=== PATIENT | male | born 1960 | race Caucasian/White ===

== ENCOUNTER 2021-02-22 06:47 | Outpatient (REF) | payer OTHER, SELFPAY ==
[2021-02-22 08:02] LABS: Anion Gap 11 (12-20); Blood Urea Nitrogen 18 mg/dL (9-16); Calcium 8.9 mg/dL (8.4-10.2); Carbon Dioxide 27 mmol/L (22-29); Chloride 106 mmol/L (96-108); Cholesterol 154 mg/dL; Estimated Glomerular Filt Rate > 60; Glucose Random 97 mg/dL (60-115); HDL Cholesterol 57 mg/dL; LDL Cholesterol Calculated 86 mg/dl; Potassium 4.4 mmol/L (3.3-5.1); Sodium 140 mmol/L (135-145); Triglycerides 55 mg/dL
[2021-02-23 10:37] LABS: Percent Free Prostate Spec Ag 24 % (calc) (>25); Prostate Specific Ag Total 4.2 ng/mL (< OR = 4.0)
== END 2021-02-22 06:48 | disposition home or self-care (01) ==
LOC: HO.LAB 06:47
PROVIDERS: PCP Family Medicine; Visit Provider Family Medicine
DX: R97.20 Elevated prostate specific antigen [PSA] (principal)
CPT/HCPCS: 36415; 80048; 80061; 84153; 84154

== ENCOUNTER 2021-08-24 06:52 | Outpatient (REF) | payer OTHER, SELFPAY ==
[2021-08-24 07:27] LABS: Hematocrit 41.6 % (42-52); Hemoglobin 14.1 g/dl (14.0-18.0); Mean Corpuscular HGB Conc 33.9 g/dl (31.0-36.0); Mean Corpuscular Hemoglobin 31.3 pg (27.0-33.0); Mean Corpuscular Volume 92.2 fL (80-98); Mean Platelet Volume 10.8 fL (9.4-12.4); Platelet Count 209 X10*3/uL (160-400); Red Blood Count 4.51 X10*6/uL (4.60-5.80); Red Cell Distribution Width 12.3 % (11.0-16.0); White Blood Count 5.1 X10*3/uL (4.8-10.8)
[2021-08-24 07:55] LABS: Alanine Aminotransferase 16 U/L (0-40); Albumin Level 4.1 g/dL (3.5-5.0); Alkaline Phosphatase 77 U/L (39-117); Anion Gap 12 (12-20); Aspartate Amino Transferase 18 U/L (5-37); Bilirubin Total 2.3 mg/dL (0.0-1.0); Blood Urea Nitrogen 13 mg/dL (9-16); Calcium 8.8 mg/dL (8.4-10.2); Carbon Dioxide 27 mmol/L (22-29); Chloride 106 mmol/L (96-108); Cholesterol 137 mg/dL; Estimated Glomerular Filt Rate > 60; Glucose Random 100 mg/dL (60-115); HDL Cholesterol 49 mg/dL; LDL Cholesterol Calculated 79 mg/dl; Potassium 4.9 mmol/L (3.3-5.1); Sodium 140 mmol/L (135-145); Total Protein 6.2 g/dL (6.5-8.0); Triglycerides 45 mg/dL
[2021-08-24 08:16] LABS: Prostate Specific Antigen 5.18 ng/mL (<0.05-4.0); Vitamin D 25-OH Total 29.9 ng/mL (>30)
== END 2021-08-24 06:53 | disposition home or self-care (01) ==
LOC: HO.LAB 06:52
PROVIDERS: PCP Family Medicine; Visit Provider Family Medicine
DX: Z00.00 Encounter for general adult medical examination without abnormal findings (principal); Z12.5 Encounter for screening for malignant neoplasm of prostate
CPT/HCPCS: 36415; 80053; 80061; 82306; 84153; 85027

== ENCOUNTER 2021-10-10 06:21 | Emergency (ER) | payer OTHER, SELFPAY ==
[2021-10-10 06:52] VITALS: BP 138/71; PULSE 72; RESP 16; TEMP 36.9; O2SAT 97; BMI 23.7
--- NOTE | 2021-10-10 07:00 | ED.EYEPROB ---
HPI - Eye Problem General Chief complaint: Eye Problems Stated complaint: right eye pain Time Seen by Provider: 10/10/21 06:49 Source: patient Mode of arrival: ambulatory Limitations: no limitations History of Present Illness MD chief complaint: eye pain, eye redness and foreign body Onset (ago): day(s) (yesterday) Onset description: sudden Duration: constant and progressively worsening Location: right eye Eye Symptoms: burning, redness, pain, foreign body sensation and discharge Place: home Mechanism: direct trauma (after leaf blowing) Severity: moderate If Pain, Quality: burning Context: trauma Associated symptoms: none Treatments Prior to Arrival: none Related Data Previous Rx's Medication Instructions Recorded hydrocodone 5 mg-acetaminophen 325 1 tab PO Q6H PRN #12 tab 10/10/21 mg tablet Allergies Allergy/AdvReac Type Severity Reaction Status Date / Time No Known Allergies Allergy Mild NONE Unverified 08/05/20 15:51 Review of Systems Review of Systems: Constitutional : No Fever, No Chills ENT/Mouth : No sore throat, No Rhinorrhea Eyes: pos Eye Pain, No Swelling, pos Redness Cardiovascular : No Chest Pain, No SOB Respiratory : No Cough, No Sputum, No Wheezing Gastrointestinal : No Nausea, No Vomiting, No Diarrhea Skin : No Skin Lesions, No rash Neuro : No Weakness No Headache PMFSH Past Medical History Attestation statement: The following information was validated with the patient. Medical History No known health problems Social History Social History (Updated 10/10/21 @ 07:15 by Urvashi Calabrese DO) Patient Tobacco Use Status: Never used Tobacco Advance Directives: No Advance Directives Information Provided: Yes Physical Exam Vital Signs: Vital Signs: Last Vital Signs Temp 98.4 F 10/10/21 06:52 Pulse 72 10/10/21 06:52 Resp 16 10/10/21 06:52 BP 138/71 10/10/21 06:52 Pulse Ox 97 10/10/21 06:52 Body Mass Index 23.7 Appearance: Alert. Oriented X3. No acute distress. Eyes: Pupils equal, round and reactive to light. R eye slight injection clear tearing noted with tetracaine and fluorescein / carreno lamp noted small less than 0.5cm oval shaped abrasion inferior to the pupil at 6 o clock no other FB seen ENT: Pharynx normal. Neck: Normal inspection. Neck supple. CVS: Normal heart rate and rhythm. Pulses normal. Respiratory: No respiratory distress. Breath sounds normal. Abdomen: atraumatic Skin: Skin warm and dry. Normal skin color. Normal skin turgor. Extremities: No lower extremity edema. Neuro: Oriented X 3. No motor deficit. No sensory deficit. MDM - Eye Problem MDM Narrative Medical decision making narrative: 60 yo male otherwise healthy tetanus UTD here with R eye pain no change in vision after leaf blowing exam consistent with small corneal abrasion - will start on ointment and pain medicatios refer to eye doctor - no other injuries noted Discharge Plan Discharge Clinical Impression: Corneal abrasion Qualifiers: Encounter type: initial encounter Laterality: right Qualified Code(s): S05.01XA - Injury of conjunctiva and corneal abrasion without foreign body, right eye, initial encounter Patient Disposition: Home, Self-Care Instructions: Corneal Abrasion (ED) Additional Instructions: return to ED for any worsening symptoms or concerns apply small ribbon to R eye of the ointment three times a day for 5 days Prescriptions: New hydrocodone-acetaminophen 5-325 mg tablet 1 tab PO Q6H PRN (Reason: pain) Qty: 12 RF: 0 Referrals: Gautam Gaming [Physician] - 1 week Stand Alone Forms: Work/School Release
[2021-10-10] MEDS: Tetracaine HCl/PF 0.5% Oph Sol 4 ML DROPS 3 DROP EYE-RIGHT (07:03)
[2021-10-10] MEDS: Fluorescein Sodium STRIP 1 STRIP EYE-RIGHT (07:03)
[2021-10-10] MEDS: Erythromycin Base 0.5% Oph Oin 1 GM TUBE 1 CM EYE-RIGHT (07:04)
== END 2021-10-10 07:23 | disposition home or self-care (01) ==
PROVIDERS: Emergency Provider Emergency Medicine
DX: S05.01XA Injury of conjunctiva and corneal abrasion without foreign body, right eye, initial encounter (principal); W45.8XXA Other foreign body or object entering through skin, initial encounter; H57.11 Ocular pain, right eye; Y93.H1 Activity, digging, shoveling and raking; Y92.017 Garden or yard in single-family (private) house as the place of occurrence of the external cause; Y99.9 Unspecified external cause status
CPT/HCPCS: 99283

== ENCOUNTER 2022-02-13 06:58 | Outpatient (REF) | payer OTHER, SELFPAY ==
[2022-02-13 08:20] LABS: PSA,Total (Free>4and<10) 4.77 ng/mL (0.00-4.00)
[2022-02-14 12:26] LABS: Free Prostate Spec Ag 1.2 ng/mL; Percent Free Prostate Spec Ag 24 % (calc) (>25)
== END 2022-02-13 06:59 | disposition home or self-care (01) ==
LOC: HO.LAB 06:58
PROVIDERS: PCP Family Medicine; Visit Provider Family Medicine
DX: R97.20 Elevated prostate specific antigen [PSA] (principal); Z12.5 Encounter for screening for malignant neoplasm of prostate
CPT/HCPCS: 36415; 84153; 84154

== ENCOUNTER 2022-05-01 10:50 | Day surgery (SDC) | payer OTHER, SELFPAY ==
[2022-04-25 15:03] VITALS: BMI 23.9
--- NOTE | 2022-04-28 10:04 | HO.ANESPROP2 ---
Documented by User: Aaliyah Terrell NP 04/28/22 10:04 HPI - Anesthesia Eval Consult details Narrative: 61yo M for Upper Endoscopy and Colonoscopy [facility] Past Medical History Medical History (Updated 04/25/22 @ 14:54 by Danita Carrion, MOIZ) Barretts esophagus GERD (gastroesophageal reflux disease) Hiatal hernia History of tinnitus Hx SBO Skin cancer Surgical History Surgical History (Updated 04/25/22 @ 14:54 by Danita Carrion, RN) History of back surgery History of esophagogastroduodenoscopy (EGD) History of exploratory laparotomy History of left inguinal hernia repair Hx of colonoscopy Social History Social History (Updated 10/10/21 @ 07:15 by Urvashi Calabrese DO) Patient Tobacco Use Status: Never used Tobacco Are you DNR?: No Advance Directives: No Advance Directives Information Provided: Yes Meds Allergies Allergy/AdvReac Type Severity Reaction Status Date / Time No Known Allergies Allergy Mild NONE Unverified 04/25/22 14:54 Home Medications Medication Instructions Recorded Confirmed Last Taken Type ymxokfgabui-ggpceohpw-vtp C-Mn 500 cap PO 04/25/22 Unknown History mg-400 mg capsule lysine 500 mg tablet 500 mg PO DAILY 04/25/22 04/25/22 Unknown History pantoprazole 40 mg tablet,delayed 1 tab PO DAILY 04/25/22 04/25/22 05/01/22 History release Exam Exam Date and Time: April 28, 2022 1004 Height,Weight and Vital Signs: Height 5 ft 11.5 in Weight 78.925 kg Assessment and Plan Assessment Anesthesia Assessment: Chart Reviewed Documented by User: Bernard Mccarthy MD 05/01/22 11:27 [facility] Past Medical History Medical History (Updated 04/25/22 @ 14:54 by Danita Carrion RN) Barretts esophagus GERD (gastroesophageal reflux disease) Hiatal hernia History of tinnitus Hx SBO Skin cancer Family History Family history of problems with anesthesia: No Surgical History Surgical History (Updated 04/25/22 @ 14:54 by Danita Carrion RN) History of back surgery History of esophagogastroduodenoscopy (EGD) History of exploratory laparotomy History of left inguinal hernia repair Hx of colonoscopy History of Problems with Anesthesia: No Social History Social History (Updated 10/10/21 @ 07:15 by Urvashi Calabrese DO) Patient Tobacco Use Status: Never used Tobacco Are you DNR?: No Advance Directives: No Advance Directives Information Provided: Yes Meds Allergies Allergy/AdvReac Type Severity Reaction Status Date / Time No Known Allergies Allergy Mild NONE Unverified 04/25/22 14:54 Home Medications Medication Instructions Recorded Confirmed Last Taken Type hyjvvzxkeoz-mdnbktlrg-wzn C-Mn 500 cap PO 04/25/22 Unknown History mg-400 mg capsule lysine 500 mg tablet 500 mg PO DAILY 04/25/22 04/25/22 Unknown History pantoprazole 40 mg tablet,delayed 1 tab PO DAILY 04/25/22 04/25/22 05/01/22 History release Exam Airway Mallampati Class: II TM Dist: >3cm Neck ROM: Full Loose/Missing/Broken Teeth: No Heart: rrr+s1s2 Lungs: cta b/l Assessment and Plan Assessment Anesthesia Assessment: Anesthesia Plan Discussed Final Anesthetic Review Family History of Problems with Anesthesia: No History of Problems with Anesthesia: No NPO: Yes ASA Class: II Final Preanesthetic Review: No Changes in Pt Med Stat, Meds/Allgs Chart Reviewed, Consent Obtained/Reviewed and Anes Risks/Benef Reviewed Patient Risk: Intermediate Procedure Risk: Low Assessment/Block/Sedation in SS: Assess/Block/Sedation-SS Anesthetic Plan Anesthetic Plan: MAC: and Agree w/ Assess. and Plan Disposition: Standard PACU
[2022-05-01 11:04] VITALS: BP 113/64; PULSE 66; RESP 16; TEMP 36.6; O2SAT 98
[2022-05-01] MEDS: Lactated Ringers 1,000 ML 100 ML IVCONT (11:14)
[2022-05-01 13:26] VITALS: BP 114/63; PULSE 83; RESP 16; TEMP 36.8; O2SAT 98
--- NOTE | 2022-05-01 13:30 | P.BOP_ITS ---
Brief Operative Note Date of Service: 05/01/22 Pre-op diagnosis: Lundy's, Screening Post-op diagnosis: other (Hiatal hernia, Colon polyps) Procedure: EGD with biopsies, Colonoscopy to the cecum and TI with hot snare polypectomy of AC polyp and bx/removal of polyp at 30cm Surgeon: Dexter Miner Anesthesia: MAC Was an Property Management Assistant used for this Procedure?: No Estimated blood loss (mL): 2.0 Pathology: other (A. EG Junction at 40cm B. Ascending colon polyp C. Polyp at 30cm) Condition: stable Disposition: PACU
[2022-05-01 13:39] VITALS: BP 117/64; PULSE 75; RESP 16; TEMP 36.8; O2SAT 98
--- NOTE | 2022-05-02 00:09 | OP_ITS ---
SURGEON: Dexter Miner MD INDICATIONS: The patient presents for evaluation of gastroesophageal reflux, Lundy's esophagus, and colorectal cancer screening. Full consent has been obtained from him for this, including risks of bleeding and perforation. PREOPERATIVE DIAGNOSIS: POSTOPERATIVE DIAGNOSIS: PROCEDURE PERFORMED: ESTIMATED BLOOD LOSS: COMPLICATIONS: ANESTHESIA: Monitored anesthesia care. ASSISTANTS: SPECIMENS: PROCEDURES: Esophagogastroduodenoscopy with biopsies, and colonoscopy to the cecum and terminal ileum with hot snare polypectomy and biopsy and removal of polyp. PREOPERATIVE DIAGNOSES: Gastroesophageal reflux, Lundy's esophagus, colorectal cancer screening. POSTOPERATIVE DIAGNOSES: Gastroesophageal reflux, Lundy's esophagus, colorectal cancer screening, small hiatal hernia, colon polyps, diverticulosis, and internal hemorrhoids. DESCRIPTION OF PROCEDURE: The patient was placed in the left lateral decubitus position. The Olympus video gastroscope was passed into the posterior oropharynx and upper esophagus under direct vision. The scope was passed slowly into the distal esophagus. The gastroesophageal junction appeared at 40 cm. There was some slight irregularity consistent with reflux and possibly small areas of Lundy's mucosa. There was no esophagitis. The scope entered the stomach. There was a small hiatal hernia. The scope was advanced to pylorus and the duodenum was cannulated to the descending portion. The duodenum including the bulb appeared normal without mass or ulceration. The scope was withdrawn back into the stomach. The gastric antrum and body appeared normal with good peristalsis. The scope was retroflexed visualizing the proximal stomach carefully, which appeared normal, without any sign of mass or ulceration. The scope was straightened and withdrawn back into the esophagus. Multiple biopsies were obtained at the EG junction at 40 cm. Proximal to this, the esophageal mucosa appeared normal. The scope was withdrawn from the patient. He was turned around for colonoscopy. The digital rectal exam revealed no abnormalities. The Olympus video pediatric colonoscope was entered into the rectum and advanced easily into the cecum. Once in the cecum, I did identify normal-appearing cecal pouch with appendiceal orifice and a normal-appearing ileocecal valve. The terminal ileum was cannulated and appeared normal. Scope was withdrawn back into the colon. The entire cecum was well visualized and appeared normal. Scope was slowly withdrawn assessing all mucosal surfaces carefully. Preparation was excellent. In the ascending colon, there was an approximately 6 to 8 mm polyp, which was removed by hot snare polypectomy and recovered by suction. The polypectomy site appeared clean, without any sign of residual polyp nor bleeding. At 30 cm, there was an approximately 3 mm polyp, which was biopsied and completely removed with cold biopsy forceps. I did not visualize any other polyps, colitis, or angiodysplasia. There was a mild amount of sigmoid diverticulosis. In the rectum, the scope was retroflexed visualizing small internal hemorrhoids, but no other pathology. The rectal mucosa appeared normal. Scope was straightened and withdrawn from the patient. He tolerated both procedures well and was returned to the recovery area in stable condition. IMPRESSION: 1. Colon polyps, status post hot snare polypectomy and biopsy removal. 2. Diverticulosis. 3. Internal hemorrhoids. 4. Hiatal hernia with history of Lundy's esophagus. PLAN: The results of biopsies will be checked. If the polyp is a tubular adenoma, I would recommend a repeat upper endoscopy and colonoscopy in 5 years for further surveillance. He was advised to continue his daily pantoprazole. He was advised not to use any aspirin and NSAIDs for 1 week. He will otherwise see me on a p.r.n. basis. MD JOY Nielsen/MELISA / [id number] MTDCharisse
== END 2022-05-01 14:34 | disposition home or self-care (01) ==
PROVIDERS: PCP Family Medicine; Visit Provider Internal Medicine
PROC: (CPT 45385; principal; 2022-05-01 11:50)
DX: Z12.11 Encounter for screening for malignant neoplasm of colon (principal); D12.2 Benign neoplasm of ascending colon; K63.5 Polyp of colon; K57.30 Diverticulosis of large intestine without perforation or abscess without bleeding; K64.8 Other hemorrhoids; K22.70 Barrett's esophagus without dysplasia; K21.9 Gastro-esophageal reflux disease without esophagitis; K44.9 Diaphragmatic hernia without obstruction or gangrene; Z90.49 Acquired absence of other specified parts of digestive tract; Z85.828 Personal history of other malignant neoplasm of skin; Z79.899 Other long term (current) drug therapy
CPT/HCPCS: 45385; 45380; 43239; 88305; J3010

== ENCOUNTER 2022-09-04 06:53 | Outpatient (REF) | payer OTHER, SELFPAY ==
[2022-09-04 07:31] LABS: Hematocrit 41.2 % (42.0-52.0); Hemoglobin 13.6 g/dl (14.0-18.0); Mean Corpuscular Hemoglobin 30.4 pg (27.0-33.0); Mean Corpuscular Volume 92.2 fL (80.0-98.0); Mean Platelet Volume 10.3 fL (9.4-12.4); Platelet Count 204 X10*3/uL (160-400); Red Blood Count 4.47 X10*6/uL (4.60-5.80); Red Cell Distribution Width 12.4 % (11.0-16.0); White Blood Count 6.2 X10*3/uL (4.8-10.8)
[2022-09-04 07:58] LABS: Alanine Aminotransferase 17 U/L (0-40); Albumin Level 3.9 g/dL (3.5-5.0); Alkaline Phosphatase 74 U/L (39-117); Anion Gap 14 (12-20); Aspartate Amino Transferase 17 U/L (5-37); Bilirubin Total 1.7 mg/dL (0.0-1.0); Blood Urea Nitrogen 18 mg/dL (9-16); Calcium 8.8 mg/dL (8.4-10.2); Carbon Dioxide 25 mmol/L (22-29); Chloride 108 mmol/L (96-108); Cholesterol 128 mg/dL; Estimated Glomerular Filt Rate > 60; Glucose Random 112 mg/dL (60-115); HDL Cholesterol 53 mg/dL; LDL Cholesterol Calculated 69 mg/dl; Potassium 4.7 mmol/L (3.3-5.1); Sodium 142 mmol/L (135-145); Total Protein 6.1 g/dL (6.5-8.0); Triglycerides 32 mg/dL
[2022-09-04 08:34] LABS: Prostate Specific Antigen Scr 4.72 ng/mL (<0.05-4.0)
== END 2022-09-04 06:54 | disposition home or self-care (01) ==
LOC: HO.LAB 06:53
PROVIDERS: PCP Family Medicine; Visit Provider Family Medicine
DX: Z00.00 Encounter for general adult medical examination without abnormal findings (principal); Z12.5 Encounter for screening for malignant neoplasm of prostate
CPT/HCPCS: 36415; 80053; 80061; 84153; 85027

== ENCOUNTER 2023-02-23 06:56 | Outpatient (REF) | payer OTHER, SELFPAY ==
[2023-02-23 07:07] LABS: MANUAL DIFF FLAG NO
[2023-02-23 07:23] LABS: Basophils Absolute Auto 0.1 X10*3/uL (0.0-0.2); Basophils Percent Auto 0.9 % (0-2); Eosinophils Percent Auto 0.7 % (0-4); Hematocrit 40.5 % (42.0-52.0); Hemoglobin 13.2 g/dl (14.0-18.0); Imm Gran Abs Auto 0.01 X10*3/uL (0.00-0.03); Imm Gran Pct Auto 0.2 % (0.0-0.4); Lymphocytes Absolute Auto 1.2 X10*3/uL (1.2-4.9); Lymphocytes Percent Auto 21.5 % (20-40); Mean Corpuscular HGB Conc 32.6 g/dl (31.0-36.0); Mean Corpuscular Hemoglobin 30.1 pg (27.0-33.0); Mean Corpuscular Volume 92.5 fL (80.0-98.0); Mean Platelet Volume 10.2 fL (9.4-12.4); Monocytes Absolute Auto 0.7 X10*3/uL (0.1-1.2); Monocytes Percent Auto 12.7 % (2-11); Neutrophils Absolute Auto 3.6 x10*3/uL (2.0-8.3); Platelet Count 219 X10*3/uL (160-400); Red Blood Count 4.38 X10*6/uL (4.60-5.80); Red Cell Distribution Width 12.3 % (11.0-16.0); White Blood Count 5.6 X10*3/uL (4.8-10.8)
== END 2023-02-23 06:57 | disposition home or self-care (01) ==
LOC: HO.LAB 06:56
PROVIDERS: PCP Family Medicine; Visit Provider Family Medicine
DX: D64.9 Anemia, unspecified (principal)
CPT/HCPCS: 36415; 85025

== ENCOUNTER 2023-09-11 07:06 | Outpatient (REF) | payer OTHER, SELFPAY ==
[2023-09-11 07:19] LABS: MANUAL DIFF FLAG NO
[2023-09-11 08:01] LABS: Basophils Percent Auto 0.6 % (0-2); Eosinophils Percent Auto 0.8 % (0-4); Hematocrit 40.7 % (42.0-52.0); Hemoglobin 13.3 g/dl (14.0-18.0); Imm Gran Abs Auto 0.01 X10*3/uL (0.00-0.03); Imm Gran Pct Auto 0.2 % (0.0-0.4); Lymphocytes Absolute Auto 1.1 X10*3/uL (1.2-4.9); Lymphocytes Percent Auto 21.4 % (20-40); Mean Corpuscular HGB Conc 32.7 g/dl (31.0-36.0); Mean Corpuscular Hemoglobin 31.5 pg (27.0-33.0); Mean Corpuscular Volume 96.4 fL (80.0-98.0); Mean Platelet Volume 10.2 fL (9.4-12.4); Monocytes Absolute Auto 0.7 X10*3/uL (0.1-1.2); Monocytes Percent Auto 13.7 % (2-11); Neutrophils Absolute Auto 3.2 x10*3/uL (2.0-8.3); Neutrophils Percent Auto 63.3 % (45-73); Platelet Count 252 X10*3/uL (160-400); Red Blood Count 4.22 X10*6/uL (4.60-5.80); Red Cell Distribution Width 14.1 % (11.0-16.0); White Blood Count 5.1 X10*3/uL (4.8-10.8)
[2023-09-11 08:15] LABS: Alanine Aminotransferase 32 U/L (0-40); Albumin Level 3.9 g/dL (3.5-5.0); Alkaline Phosphatase 90 U/L (39-117); Anion Gap 12 (12-20); Aspartate Amino Transferase 26 U/L (5-37); Bilirubin Total 0.9 mg/dL (0.0-1.0); Blood Urea Nitrogen 17 mg/dL (9-16); Calcium 8.8 mg/dL (8.4-10.2); Carbon Dioxide 24 mmol/L (22-29); Chloride 110 mmol/L (96-108); Estimated Glomerular Filt Rate > 60; Glucose Random 100 mg/dL (60-115); Potassium 4.2 mmol/L (3.3-5.1); Sodium 142 mmol/L (135-145); Total Protein 6.4 g/dL (6.5-8.0)
[2023-09-11 08:33] LABS: Prostate Specific Antigen 5.73 ng/mL (<0.05-4.0)
== END 2023-09-11 07:07 | disposition home or self-care (01) ==
LOC: HO.LAB 07:06
PROVIDERS: PCP Family Medicine; Visit Provider Family Medicine
DX: Z12.5 Encounter for screening for malignant neoplasm of prostate (principal); R97.20 Elevated prostate specific antigen [PSA]; K21.9 Gastro-esophageal reflux disease without esophagitis; K22.70 Barrett's esophagus without dysplasia
CPT/HCPCS: 36415; 80053; 84153; 85025

== ENCOUNTER 2023-12-27 06:53 | Outpatient (REF) | payer OTHER, SELFPAY ==
[2023-12-27 08:14] LABS: Alanine Aminotransferase 27 U/L (0-40); Albumin Level 3.8 g/dL (3.5-5.0); Alkaline Phosphatase 90 U/L (39-117); Aspartate Amino Transferase 20 U/L (5-37); Bilirubin Direct 0.4 mg/dL (0.0-0.5); Bilirubin Total 1.2 mg/dL (0.0-1.0); Total Protein 6.2 g/dL (6.5-8.0)
== END 2023-12-27 06:54 | disposition home or self-care (01) ==
LOC: HO.LAB 06:53
PROVIDERS: PCP Family Medicine; Visit Provider Dermatology
DX: B35.1 Tinea unguium (principal)
CPT/HCPCS: 36415; 80076

== ENCOUNTER 2024-02-08 13:44 | Outpatient (REF) | payer OTHER, SELFPAY ==
[2024-02-08 14:59] LABS: Alanine Aminotransferase 31 U/L (0-40); Albumin Level 3.9 g/dL (3.5-5.0); Alkaline Phosphatase 101 U/L (39-117); Aspartate Amino Transferase 22 U/L (5-37); Bilirubin Direct 0.3 mg/dL (0.0-0.5); Bilirubin Total 0.8 mg/dL (0.0-1.0); Total Protein 6.4 g/dL (6.5-8.0)
== END 2024-02-08 13:45 | disposition home or self-care (01) ==
LOC: HO.LAB 13:44
PROVIDERS: PCP Family Medicine; Visit Provider Dermatology
DX: B35.1 Tinea unguium (principal)
CPT/HCPCS: 36415; 80076

== ENCOUNTER 2024-03-12 06:53 | Outpatient (REF) | payer OTHER, SELFPAY ==
[2024-03-12 07:10] LABS: MANUAL DIFF FLAG NO
[2024-03-12 08:29] LABS: Basophils Percent Auto 0.9 % (0-2); Eosinophils Percent Auto 0.7 % (0-4); Hematocrit 42.1 % (42.0-52.0); Hemoglobin 14.1 g/dl (14.0-18.0); Imm Gran Abs Auto 0.01 X10*3/uL (0.00-0.03); Imm Gran Pct Auto 0.2 % (0.0-0.4); Lymphocytes Absolute Auto 1.1 X10*3/uL (1.2-4.9); Lymphocytes Percent Auto 25.6 % (20-40); Mean Corpuscular HGB Conc 33.5 g/dl (31.0-36.0); Mean Corpuscular Hemoglobin 31.6 pg (27.0-33.0); Mean Corpuscular Volume 94.4 fL (80.0-98.0); Mean Platelet Volume 10.2 fL (9.4-12.4); Monocytes Absolute Auto 0.7 X10*3/uL (0.1-1.2); Neutrophils Absolute Auto 2.5 x10*3/uL (2.0-8.3); Neutrophils Percent Auto 56.6 % (45-73); Platelet Count 249 X10*3/uL (160-400); Red Blood Count 4.46 X10*6/uL (4.60-5.80); Red Cell Distribution Width 12.6 % (11.0-16.0); White Blood Count 4.4 X10*3/uL (4.8-10.8)
[2024-03-12 08:52] LABS: Alanine Aminotransferase 31 U/L (0-40); Alkaline Phosphatase 96 U/L (39-117); Anion Gap 9 (12-20); Aspartate Amino Transferase 21 U/L (5-37); Bilirubin Total 1.4 mg/dL (0.0-1.0); Blood Urea Nitrogen 15 mg/dL (9-16); Calcium 8.9 mg/dL (8.4-10.2); Carbon Dioxide 28 mmol/L (22-29); Chloride 106 mmol/L (96-108); Cholesterol 114 mg/dL (<200); Estimated Glomerular Filt Rate > 60; Glucose Random 98 mg/dL (60-115); HDL Cholesterol 31 mg/dL (>40); LDL Cholesterol Calculated 76 mg/dL (<100); Potassium 4.4 mmol/L (3.3-5.1); Sodium 139 mmol/L (135-145); Total Protein 6.6 g/dL (6.5-8.0); Triglycerides 37 mg/dL (<150)
[2024-03-12 09:18] LABS: Prostate Specific Antigen 5.35 ng/mL (<0.05-4.0)
[2024-03-14 13:19] LABS: Free Prostate Spec Ag 1.2 ng/mL; Percent Free Prostate Spec Ag 24 % (calc) (>25); Prostate Specific Ag Total 5.1 ng/mL (< OR = 4.0)
== END 2024-03-12 06:54 | disposition home or self-care (01) ==
LOC: HO.LAB 06:53
PROVIDERS: PCP Family Medicine; Visit Provider Family Medicine
DX: Z00.00 Encounter for general adult medical examination without abnormal findings (principal); R97.20 Elevated prostate specific antigen [PSA]; K21.9 Gastro-esophageal reflux disease without esophagitis; K22.70 Barrett's esophagus without dysplasia; Z12.5 Encounter for screening for malignant neoplasm of prostate
CPT/HCPCS: 36415; 80053; 80061; 84153; 84154; 85025

== ENCOUNTER 2024-06-23 07:00 | Outpatient (REF) | payer OTHER, SELFPAY ==
[2024-06-23 08:08] LABS: Alanine Aminotransferase 28 U/L (0-40); Alkaline Phosphatase 91 U/L (39-117); Aspartate Amino Transferase 21 U/L (5-37); Bilirubin Direct 0.4 mg/dL (0.0-0.5); Bilirubin Total 1.2 mg/dL (0.0-1.0); Total Protein 6.4 g/dL (6.5-8.0)
== END 2024-06-23 07:01 | disposition home or self-care (01) ==
LOC: HO.LAB 07:00
PROVIDERS: PCP Family Medicine; Visit Provider Physician Assistant Surgical
DX: B35.1 Tinea unguium (principal)
CPT/HCPCS: 36415; 80076

== ENCOUNTER 2024-10-28 14:44 | Outpatient (REF) | payer OTHER, SELFPAY ==
[2024-10-29 15:19] LABS: Free Prostate Spec Ag 1.7 ng/mL; Percent Free Prostate Spec Ag 30 % (calc) (>25); Prostate Specific Ag Total 5.7 ng/mL (< OR = 4.0)
--- OUTSIDE RECORDS SUMMARY | 2024-10-29 22:11 | XMS_ITS ---
Author Organization [facility] Address [address] [place] [address] Care Team Providers Care Hospitality Host Name Role Phone JACE CORMIER MD Primary Care Provider Unavailab Jace Gonzales Unavailable [phone] ALLERGIES No Known Allergies REASON FOR VISIT Patient presents today for diarrhea, reflux MEDICATIONS Medication SIG (Take, Route, Frequency, Duration) Notes Start Date End Date Status Pantoprazole Sodium 40 MG TAKE 1 TAB BY MOUTH TWICE DAILY X 30 DAYS for 30 Active Tamsulosin HCl 0.4 MG Oral for 90 Active Lysine 500 MG as directed Orally a s directed Active Glucosamine Chondr 1500 Complx Orally Active PROBLEMS Problem Type ICD Code Onset Dates Problem Status W/U Status Risk SNOMED Code Notes Problem Diarrhea, unspecified type (R19.7) Active confirmed 88770328 VITAL SIGNS BMI 22.66 kg/m2 06/27/2023 Blood pressure systolic 000 mm Hg 06/27/20 23 Blood pressure diastolic 00 mm Hg 023 Height 71.50 in 06/27/2023 Temperature 98.6 degrees Fahrenheit 06/27/20 23 Weight 164.8 lbs 06/27/2023 Encounters Encounter Location Date Provider Diagnosis [facility] [address] [place] [phone] 06/27/2023 Jace Miner Gastroesophageal ref lux disease without esophagitis K21.9 and Diarrhea, unspecified type R19.7 ASSESSMENTS Encounter Date Diagnosis Assessment Notes Treatment Notes Treatment Clinical Notes 06/27/2023 Gastroesophageal reflux disease without esophagitis (ICD-10 - K21.9) Stay on the one Pantoprazole every day and use TUMS as needed 06/27/2023 Diarrhea, unspecifie d type (ICD-10 - R19.7) Let me know if you do the lab and stool specimens, and call me if things worsen PLAN OF TREATMENT Treatment Notes Assessment Notes Gastroesophageal reflux dise ase without esophagitis Stay on the one Pantoprazole every day and use TUMS as needed Diarrhea, unspecified type Let me know i f you do the lab and stool specimens, and call me if things worsen Pending Test Test Name Order Date CELIAC PANEL #10 06/27/2023 STOOL WBC 06/27/2023 C DIFFICILE RFLX PCR 06/27/2023 GI PANEL 06/27/2023 Next Appt Details Follow Up: prn, Reason: Progress Notes * Examination Category Sub-Category Detail Notes General Examination GENERAL APPEARANCE: pleasant , well nourished, well developed, in no acute distress EYES: sclera non-icteric NECK/THYROID: no cervical lymphade nopathy, neck supple HEART: S1, S2 normal LUNGS: clear to auscultatio n bilaterally ABDOMEN: normal bowel sounds, no guarding or rigidity, no hepatosplenomegaly, no masses palpable, soft, nontender, nondistended. NEUROLOGIC: alert and oriented SKIN: nonjaundiced, no spi amos angiomata. EXTREMITIES: no edema ORAL CAVITY: mucosa moist
--- OUTSIDE RECORDS SUMMARY | 2024-10-29 22:11 | XMS_ITS ---
Author Organization [facility] Address [address] [place] [phone] Care Team Providers Care Threshing Department Supervisor Name Role Phone JACE CORMIER MD Primary Care Provider Unavailab Jace Gonzales Unavailable [phone] REASON FOR VISIT acid reflux Encounters Encounter Location Date Provider Diagnosis [facility] [address] [place] [address] 09/19/2023 Jace Miner PLAN OF TREATMENT No Information
--- OUTSIDE RECORDS SUMMARY | 2024-10-29 22:11 | XMS_ITS ---
Author Organization [facility] Address [address] [place] [address] Care Team Providers Care Intelligence Consultant Name Role Phone JACE CORMIER MD Primary Care Provider Unavailab Jace Gonzales Unavailable [phone] REASON FOR VISIT soon appt Encounters Encounter Location Date Provider Diagnosis [facility] [address] [place] [address] 06/25/2023 Jace Miner PLAN OF TREATMENT No Information
--- OUTSIDE RECORDS SUMMARY | 2024-10-29 22:11 | XMS_ITS | Patient Health Record ---
Author Organization [facility] Address [address] [place] [address] Care Team Providers Care Metal Bonding Helper Name Role Phone JACE CORMIER MD Primary Care Provider UnavailJace Baldwin Unavailable [phone] ALLERGIES No Known Allergies REASON FOR REFERRAL No Information MEDICATIONS Medication SIG (Take, Route, Frequency, Duration) Notes Start Date End Date Status Pantoprazole Sodium 40 MG TAKE 1 TAB BY MOUTH TWICE DAILY X 30 DAYS for 30 Active Tamsulosin HCl 0.4 MG Oral for 90 Active Lysine 500 MG as directed Orally a s directed Active Glucosamine Chondr 1500 Complx Orally Active IMMUNIZATIONS Vaccine Route Administration Date Status Comme nts Influenza Unknown 09/23/2018 Administered Influenza Unknown 10/04/2021 Administered Influenza Unknown 10/10/2022 Administered SOCIAL HISTORY Sex Assigned At : Social History Observation Description Sex Assigned At Unknown PROBLEMS Problem Type ICD Code Onset Dates Problem Status W/U Status Risk SNOMED Code Notes Problem Gastro-esophageal reflux disease without esophagitis (K21.9) Active confirmed [id number] Problem Encounter for screening for malignant neoplasm of colon (Z12.11) Active confirmed Screening for malignant neoplasm of colon (127392129) Problem Gastroesophageal reflux disease without esophagitis (K21.9) Active confirmed 208883533 Problem Lundy esophagus (K22.70) Active confirmed Lundy esophagus (357187429) Problem Gastroesophageal reflux (K21.9) Active confirmed Esophageal reflux finding (920997696) Problem Diarrhea, unspecified type (R19.7) Active confirmed 61236583 Problem Diverticulosis of colon (K57.30) Active confirmed Diverticulosi s of colon (617942501) Problem Lundy''s esophagus without dysplasia (K22.70) Active confirmed 471160120 PLAN OF TREATMENT Pending Test Test Name Order Date CELIAC PANEL #10 06/27/2023 STOOL WBC 06/27/2023 C DIFFICILE RFLX PCR 06/27/2023 GI PANEL 06/27/2023 Future Test Test Name Order Date UPPER GI ENDOSCOPY 03/30/2015 UPPER GI ENDOSCOPY 11/20/2018 UPPER GI ENDOSCOPY 04/05/2022 COLONOSCOPY 04/05/2022 Insurance Providers Payer Name Payer Address Payer Phone Subscriber Number Group Number Insured Name Patient Relationship to Insured Coverage Start Date Coverage End Date [employer] [place] [address] [address] [place] [address] [id number] BRENNA KYLIE Self - patient is the insured MEDICAL (GENERAL) HISTORY Medical History History ICD Code GERD-his upper endoscopy in 2007 revealed a small hiatal hernia and a tiny area of Lundy's mucosa--his followup upper endoscopy in 2010 was negative for any Lundy's esophagus nor significant esophagitis; 05/2015 EGD with tiny area of Lundy's--no dysplasia; upper endoscopy in December of 2018 revealed his known hiatal hernia but biopsies were negative for Lundy's mucosa--there was no esophagitis Denies [place],DM,CVA,Lung disease,renal dise ase Screening colonoscopy in 1 was negative other than a non-adenomatous polyp and some mild more diverticulosis Tinnitus EGD 04/2022-small HH, no Lundy's, no es ophagitis Colonoscopy 04/2022-1 small serrated poly and a hyperplastic polyp Surgical History Surgery Date(Month/Year) Back surgery Small bowel resection for Meckel's diver ticulum and obstruction Second laparotomy for adhesi ons several years after the small bowel resections Skin cancer removals--squamous and basal cell Left inguinal hernia repair Basal cell taken off of left arm
== END 2024-10-28 14:45 | disposition home or self-care (01) ==
LOC: HO.LAB 14:44
PROVIDERS: PCP Family Medicine; Visit Provider Urology
DX: R97.20 Elevated prostate specific antigen [PSA] (principal)
CPT/HCPCS: 36415; 84154

== ENCOUNTER 2024-11-27 08:35 | Outpatient (REF) | payer OTHER, SELFPAY ==
--- NOTE | ~2024-11-27 | MR_ITS ---
EXAMINATION: MR PELVIS WITHOUT THEN WITH IV CONTRAST HISTORY: ELEVATED PSA F/U EXAM TECHNIQUE: 1.5T body coil survey of the pelvis was performed. Phase array coil imaging of the prostate was performed in multiplanar high resolution axial, coronal, sagittal fast spin echo T2 and axial T1 weighted imaging sequences. Axial diffusion imaging at intermediate and high field performed with ADC mapping. Next, 7.5 mL Gadavist was given by intravenous infusion, and dynamic axial imaging performed. COMPARISON: There are no prior studies for comparison. FINDINGS: Prostate size: 7.3 x 5.9 x 4.9 cm. Calculated prostate volume is 109.7 mL. Hemorrhage: None. Transitional Zone: There is marked heterogeneous nodular hypertrophy of the transitional zone. Peripheral Zone: The peripheral zone is thinned by the enlarged transitional zone. There are linear and wedge-shaped T2 hypointense foci in the peripheral zone which can be seen in the setting of prostatitis of scarring. There are no foci of restricted diffusion. No discrete focus of abnormal signal intensity is identified. Seminal Vesicles/Ejaculatory Ducts: Symmetric and normal in signal and caliber. Pelvic Lymph Nodes: No obturator or internal iliac lymph nodes meeting size criteria for adenopathy. Marrow Signal: Normal marrow signal and enhancement without focal lesion identified. MR/MR pelvis wo/w con IMPRESSION: No discrete focus of abnormal signal intensity is identified to suggest clinically significant prostate carcinoma. PI-RADS 2: Low (clinically significant cancer is unlikely to be present) [employer]. MR Prostate Imaging Reporting and Data System version 2.1. [email or web address] Electronically signed by: Dexter Mills MD 12/01/2024 08:17 AM HÉCTOR
--- OUTSIDE RECORDS SUMMARY | 2024-11-27 08:49 | XMS_ITS ---
Author Organization [facility] Address [address] [place] [phone] Care Team Providers Care Automatic Casting Machine Operator Name Role Phone JACE CORMIER MD Primary Care Provider Unavailab Jace Gonzales Unavailable [phone] REASON FOR VISIT acid reflux Encounters Encounter Location Date Provider Diagnosis [facility] [address] [place] [address] 09/19/2023 Jace Miner PLAN OF TREATMENT No Information
--- OUTSIDE RECORDS SUMMARY | 2024-11-27 08:50 | XMS_ITS ---
Author Organization [facility] Address [address] [place] [address] Care Team Providers Care Motorman/Woman Name Role Phone JACE CORMIER MD Primary Care Provider Unavailab Jace Gonzales Unavailable [phone] REASON FOR VISIT soon appt Encounters Encounter Location Date Provider Diagnosis [facility] [address] [place] [address] 06/25/2023 Jace Miner PLAN OF TREATMENT No Information
--- OUTSIDE RECORDS SUMMARY | 2024-11-27 08:50 | XMS_ITS ---
Author Organization [facility] Address [address] [place] [address] Care Team Providers Care Interventional Sale Consultant Name Role Phone JACE CORMIER MD Primary Care Provider Unavailab Jace Gonzales Unavailable [phone] ALLERGIES No Known Allergies REASON FOR VISIT [...] Problem Diarrhea, unspecified type (R19.7) Active confirmed 28891281 VITAL SIGNS BMI 22.66 kg/m2 06/27/2023 Blood pressure systolic 000 mm Hg 06/27/20 23 Blood pressure diastolic 00 mm Hg 023 Height 71.50 in 06/27/2023 Temperature 98.6 degrees Fahrenheit 06/27/20 23 Weight 164.8 lbs 06/27/2023 Encounters Encounter Location Date Provider Diagnosis [facility] [address] [place] [phone] 06/27/2023 Jace Miner Gastroesophageal ref lux disease [...]
--- OUTSIDE RECORDS SUMMARY | 2024-11-27 08:50 | XMS_ITS | Patient Health Record ---
Author Organization [facility] Address [address] [place] [address] Care Team Providers Care Tray Room Worker Name Role Phone JACE CORMIER MD Primary Care Provider UnavailJace Baldwin Unavailable [phone] ALLERGIES No Known Allergies REASON FOR REFERRAL [...] reflux disease without esophagitis (K21.9) Active confirmed 780084164 Problem Encounter for screening for malignant neoplasm of colon (Z12.11) Active confirmed Screening for malignant neoplasm of colon (288578092) Problem Gastroesophageal reflux disease without esophagitis (K21.9) Active confirmed 251681420 Problem Lundy esophagus (K22.70) Active confirmed Lundy esophagus (068094906) Problem Gastroesophageal reflux (K21.9) Active confirmed Esophageal reflux finding (443692694) Problem Diarrhea, unspecified type (R19.7) Active confirmed 31393634 Problem Diverticulosis of colon (K57.30) Active confirmed Diverticulosi s of colon (776301759) Problem Lundy''s esophagus without dysplasia (K22.70) Active confirmed 429581432 PLAN OF TREATMENT Pending Test Test Name [...] Coverage End Date [employer] [place] [address] [address] [place] [address] [id number] BRENNA KYLIE Self - patient is the [...] for Lundy's mucosa--there was no esophagitis Denies [place],DM,CVA,Lung disease,renal dise ase Screening colonoscopy in 1 [...]
[2024-11-27] MEDS: gadobutroL 10 ML VIAL IVPUSH (10:29)
== END 2024-11-27 08:36 | disposition home or self-care (01) ==
LOC: HO.MRI 08:35
PROVIDERS: PCP Family Medicine; Visit Provider Urology
DX: R97.20 Elevated prostate specific antigen [PSA] (principal)
CPT/HCPCS: 72197; A9585

== ENCOUNTER → 2024-11-27 08:45 | Outpatient (BNV) | payer OTHER, SELFPAY | PROVIDERS: PCP Family Medicine; Visit Provider Radiology Diagnostic Radiology | DX: R97.20 Elevated prostate specific antigen [PSA] (principal) | CPT/HCPCS: 72197 ==

== ENCOUNTER 2025-03-19 07:02 | Outpatient (REF) | payer OTHER, SELFPAY ==
--- OUTSIDE RECORDS SUMMARY | 2025-03-19 07:09 | XMS_ITS | Continuity of Care Document ---
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 Elevated PSA(Discharge Diagnosis) - 03/11/25 Skin cancer(Discharge Diagnosis) - 03/11/25 Attending Physician: Paradise Frankel NP Encounter Type: Office Visit Allergies, Adverse Reactions, Alerts No Known Medication Allergies Immunizations Given and Recorded Vaccine Date Status Refusal Reason zoster vaccine, inactivated 02/16/23 Recorded zoster vaccine, inactivated 10/20/22 Recorded influenza virus vaccine, inactivated 08/31/22 Alexis rded influenza virus vaccine, inactivated 09/01/21 Alexis rded influenza virus vaccine, inactivated 08/25/20 Alexis rded influenza virus vaccine, inactivated 08/27/19 Alexis rded influenza virus vaccine, inactivated 09/04/18 Alexis rded influenza virus vaccine, inactivated 10/15/17 Alexis rded influenza virus vaccine, inactivated 09/11/16 Alexis rded [id number] 12y+ bivalent booster vax 08/17/22 Recorded SARS-CoV-2 mRNA ([id number]) vax 03/16/22 Recorded SARS-CoV-2 (COVID-19) mRNA BNT-162b2 vac 08/17/21 Recorded SARS-CoV-2 (COVID-19) mRNA BNT-162b2 vac 11/26/20 Recorded SARS-CoV-2 (COVID-19) mRNA BNT-162b2 vac 11/05/20 Recorded tetanus/diphtheria/pertussis, acel(Tdap) 05/10/17 Given Medications Glucosamine Chondroitin 3 capsule, By Mouth, Daily, 0 Refills, Maintenance, 08/26/18 1:06:17 PM EDT Start Date: 08/26/18 Status: Ordered Repeat number: 1 lysine 500 mg oral tablet 2 tablet = 1,000 mg, By Mouth, Daily, 0 Refills, Maintenance, 08/26/18 1:06:30 PM EDT Start Date: 08/26/18 Status: Ordered Repeat number: 1 pantoprazole 40 mg oral delayed release tablet 1 tablet, By Mouth, Daily, # 90 tablet, 1 Refills, Maintenance, 03/02/25 7:41:00 PM EDT, 175.26, cm,03/04/24 14:03:00 EDT, Height Start Date: 03/02/25 Status: Ordered Quantity: 90.0 Unit: tablet Repeat number: 2 tamsulosin 0.4 mg oral capsule 1, capsule, By Mouth, Daily, # 90 capsule, Refills 3, Tot. 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 Quevedo Diagnosis Diagnosis Type Effective Dates [facility] Lundy esophagus Discharge Diagnosis 03/11/25 Elevated PSA Discharge Diagnosis 03/11/25 Skin cancer Discharge Diagnosis 03/11/25 Vital Signs Most recent to oldest [Reference Range]: 1 Height 175.26 cm (03/11/25 8:40 AM) Weight 78.5 kg (03/11/25 8:40 AM) Oxygen Saturation [94-100 %] 99 % (03/11/25 8:40 AM) Pulse Rate [55-90 bpm] 65 bpm (03/11/25 8:40 AM) Body Mass Index [18.5-24.99 kg/m2] 25.56 kg/m2 *H* (03/11/25 8:40 AM) Blood Pressure [90-138/55-84 mm Hg] 104/ 60mm Hg (03/11/25 8:40 AM) Temperature [96.8-100.4 DegF] 97.8 DegF (03/11/25 8:40 AM) Blood pressure sites Arm, left (03/11/25 8:40 AM) Temperature Route Oral (03/11/25 8:40 AM) Weight Obtained Via Standing scale (03/11/25 8:40 AM) Social History Social History Type Response Smoking Status Never smoker entered on: 10/05/16 Sex Sex Representation Male (finding) Note * Bella Burch: PERFORM Event Display: Patient Education/Instruction Authored Date: [id number] Ambulatory Adult Visit Summary [facility] Adult [facility] [address] [place] [id number] Name: KYLIE CEJA : 1960?? Visit: 03/11/2025 08:22?? Ambulatory Visit Instructions ?? Your Care Team Primary Care Provider Jostin TRINH, Paradise Colon? This Visit Provider Paradise Frankel NP Your Diagnosis Physical exam Vitals Signs Temperature: 97.8 DegF Height: 175.26 cm Pulse Rate: 65 bpm Weight: 78.5 kg Systolic Blood Pressure: 104 mm Hg Body Mass Index:??25.56 kg/m2??High Diastolic Blood Pressure: 60 mm Hg Body surface area: 1.95 Oxygen Saturation: 99 % ?? What to do next Future Orders CBC w/ Differential - Routine, Once, 03/04/24 14:23:00 EDT, Order for Today, [facility], Blood?? Comprehensive Metabolic Panel - Routine, Once, 03/04/24 14:23:00 EDT, Order for Today, [facility], Blood?? Lipid Panel - Routine, Once, 03/04/24 14:23:00 EDT, Order for Today, [facility], Blood?? PSA Free - Routine, Once, 03/04/24 14:23:00 EDT, Order for Today, [facility], Blood?? CBC w/ Differential - Routine, Once, 03/11/25 9:06:00 EDT, Order for Today, [facility], Blood?? Comprehensive Metabolic Panel - Routine, Once, 03/11/25 9:07:00 EDT, Order for Today, [facility], Blood?? Hemoglobin A1C (Monitoring) - Routine, Once, 03/11/25 9:07:00 EDT, Order for Today, [facility], Blood?? Glucose Level - Routine, Once, 03/11/25 9:07:00 EDT, Order for Today, [facility], Blood?? Lipid Panel - Routine, Once, 03/11/25 9:07:00 EDT, Order for Today, [facility], Blood?? TSH Rfx on Abnormal to Free T4 - Routine, Once, 03/11/25 9:07:00 EDT, Order for Today, [facility], Blood?? Medications The list below reflects the information in our records and provided by you today along with any changes made during this visit. Please continue your medications until treatment is completed or stopped by your provider. If this is different from the information you have or there are other questions,please contact the prescribing provider. What How Much When Instructions New Tamsulosin (tamsulosin 0.4 mg oral capsule) 1 capsule Oral Daily Refills: 3 Pick[place] at [facility] Unchanged ascorbic acid/ chondroitin/ glucosa/ elkin (Glucosamine Chondroitin) 3 capsule Oral Daily Unchanged Lysine (lysine 500 mg oral tablet) 2 tab(s) Oral Daily Unchanged Pantoprazole (pantoprazole 40 mg oral delayed release tablet) 1 tab(s) Oral Daily Pharmacy Information [facility]: [address] [place] [address] [phone] Test Performed Below is a partial list of the tests performed during your Visit. You may have had other tests and procedures not included in this list. Please discuss all test results with your provider. CBC w/ Differential?-- Results Pending -- Comprehensive Metabolic Panel?-- Results Pending -- Glucose Level?-- Results Pending -- Hemoglobin A1C (Monitoring)?-- Results Pending -- Lipid Panel?-- Results Pending -- TSH Rfx on Abnormal to Free T4?-- Results Pending -- Medications and Immunizations Administered Medications Given During Visit No medications given during this visit.?? Allergies (NKA means No Known Allergies) No Known Medication Allergies Common Emergency Awareness Tips IS IT A STROKE? Act FAST and Check for these signs: FACE Does the face look uneven? ARM Does one arm drift down? SPEECH Does their speech sound strange? TIME Call at any sign of stroke ?? Heart Attack Signs Chest discomfort: Most heart attacks involve discomfort in the center of the chest and lasts more than a few minutes, or goes away and comes back. It can feel like uncomfortable pressure, squeezing, fullness or pain. Discomfort in upper body: Symptoms can include pain or discomfort in one or both arms, back, neck, jaw or stomach. Shortness of breath: With or without discomfort. Other signs: Breaking out in a cold sweat, nausea, or lightheaded. Remember, MINUTES DO MATTER. If you experience any of these heart attack warning signs, call to get immediate medical attention! ?? Smoking can increase your chances of developing chronic health problems and can cause harmful effects to other family members in your house. If you smoke, you are strongly encouraged to quit. Please call [facility] at [phone] or [phone] ([phone]) or log in to [email or web address] for referrals to smoking cessation programs. ?? The National Suicide Prevention Hotline is available 11/06 if you or someone you know needs to find a reason to keep living. By calling 8-775-711-Soum (0758) you'll be connected to a skilled, trained counselor at a crisis center in your area. [facility] [employer] Portal You can view and manage your care through the patient portal or by using a health care julia of your choosing. [facility] is a website that allows you to securely view your medical information including your hospital discharge summary, office visit summaries, medications and follow-up visits. You can also request appointments, renew medications, and request access to your medical information using a health care julia of your choosing, or just ask a question. You can enroll at [email or web address] or register during your next office visit. [facility], in keeping with [facility] guidance, no longer requires face masks for staff, patientsor visitors in most situations. Similiar to time spent indoors at other locations, there is the chance that you were exposed to repiratory viruses during your time with us (such as flu or COVID-19). If you develop symptoms concerning for a viral respiratory infection, please seek testing (and treatment if indicated) from your medical provider or home test kit. ?? Disclaimer: The information provided is of a general nature and is intended to be used in conjunction with the recommendations and advice of your health care practitioner. Every effort has been made to ensure that the information provided is accurate and complete at the time it is provided to you however, as your needs change, or, as new information becomes available, different or additional instructions may be required. ?? If you have questions, please consult with your primary care provider or pharmacist, as appropriate. This information is not intended to serve as substitution for assessment and evaluation by a qualified health care provider. If you do not have a primary care provider, you may find a [facility] provider by calling [facility] Link at [phone]. Patient Care team information Care Team Personnel Name: Paradise Frankel NP Position: [facility] PC[facility] Associate Professional Member Role: PCP Address: [address] [place] [address] Adult Medicine [place], [place] [address] Telecom: Care Team Related Persons Name: TATIANA CEJA Insurance Providers Guarantor name: KYLIE CEJA Health Plan Information #: 1 Payer: [employer] P[employer] Member Number: [id number] Policy Number: NA Group Number: [id number] Health Plan Information #: 2 Payer: [employer] P[employer] Member Number: [id number] Policy Number: NA Group Number: [id number]
[2025-03-19 07:25] LABS: MANUAL DIFF FLAG NO
[2025-03-19 07:42] LABS: Basophils Percent Auto 0.8 % (0-2); Eosinophils Percent Auto 0.8 % (0-4); Hemoglobin 13.2 g/dl (14.0-18.0); Imm Gran Abs Auto 0.01 X10*3/uL (0.00-0.03); Imm Gran Pct Auto 0.2 % (0.0-0.4); Lymphocytes Absolute Auto 1.2 X10*3/uL (1.2-4.9); Mean Corpuscular HGB Conc 33.8 g/dl (31.0-36.0); Mean Corpuscular Hemoglobin 32.1 pg (27.0-33.0); Mean Corpuscular Volume 94.9 fL (80.0-98.0); Mean Platelet Volume 9.6 fL (9.4-12.4); Monocytes Absolute Auto 0.7 X10*3/uL (0.1-1.2); Monocytes Percent Auto 13.2 % (2-11); Neutrophils Absolute Auto 3.3 x10*3/uL (2.0-8.3); Platelet Count 243 X10*3/uL (160-400); Red Blood Count 4.11 X10*6/uL (4.60-5.80); Red Cell Distribution Width 12.4 % (11.0-16.0); White Blood Count 5.3 X10*3/uL (4.8-10.8)
[2025-03-19 07:48] LABS: Estimated Average Glucose 100 mg/dL; Hemoglobin A1C 111.3527 umol/L; Hemoglobin A1c % 5.1 % (<6.0)
[2025-03-19 08:12] LABS: Alanine Aminotransferase 31 U/L (0-40); Albumin Level 3.9 g/dL (3.5-5.0); Alkaline Phosphatase 86 U/L (39-117); Anion Gap 12 (12-20); Aspartate Amino Transferase 24 U/L (5-37); Blood Urea Nitrogen 15 mg/dL (9-16); Calcium 8.7 mg/dL (8.4-10.2); Carbon Dioxide 26 mmol/L (22-29); Chloride 107 mmol/L (96-108); Cholesterol 111 mg/dL (<200); Estimated Glomerular Filt Rate > 60; Glucose Fasting 105 mg/dL (60-99); Glucose Random 104 mg/dL (60-115); HDL Cholesterol 38 mg/dL (>40); LDL Cholesterol Calculated 68 mg/dL (<100); Potassium 4.5 mmol/L (3.3-5.1); Sodium 140 mmol/L (135-145); Total Protein 6.4 g/dL (6.5-8.0); Triglycerides 28 mg/dL (<150)
[2025-03-19 08:33] LABS: TSH reflex Free T4 3.81 uIU/mL (0.32-4.0)
== END 2025-03-19 07:03 | disposition home or self-care (01) ==
LOC: HO.LAB 07:02
PROVIDERS: PCP Registered Nurse; Visit Provider Registered Nurse
DX: Z00.00 Encounter for general adult medical examination without abnormal findings (principal); Z13.1 Encounter for screening for diabetes mellitus; Z13.6 Encounter for screening for cardiovascular disorders
CPT/HCPCS: 36415; 80053; 80061; 83036; 84443; 85025

== ENCOUNTER 2025-05-27 06:55 | Outpatient (REF) | payer OTHER, SELFPAY ==
[2025-05-28 12:03] LABS: Free Prostate Spec Ag 1.3 ng/mL; Percent Free Prostate Spec Ag 23 % (calc) (>25)
== END 2025-05-27 06:56 | disposition home or self-care (01) ==
LOC: HO.LAB 06:55
PROVIDERS: PCP Registered Nurse; Visit Provider Urology
DX: Z80.42 Family history of malignant neoplasm of prostate (principal)
CPT/HCPCS: 36415; 84154